=== PATIENT | male | born 1985 | race Asian ===

== ENCOUNTER 2018-10-13 10:20 | Emergency (ER) | payer MEDICAID, OTHER ==
[~2018-10-13] VITALS: Ht 177.8 cm; Wt 81.6 kg
[2018-10-13 10:25] VITALS: BP 123/87
[2018-10-13] MEDS ORDERED: cefTRIAXone SOD 1,000 MG VL IM ONE (11:45)
[2018-10-13] MEDS ORDERED: LIDOCAINE 1% HCL (LOCAL ANESTH.) INJ 20ML MDV IJ ONE (12:00)
== END 2018-10-13 12:53 | disposition home or self-care (01) ==
LOC: EDBD 10:25 → ER 10:25
DX: K04.7 Periapical abscess without sinus (principal); H66.91 Otitis media, unspecified, right ear
CPT/HCPCS: 96372; 99283; J0696; J2001

== ENCOUNTER 2019-06-15 19:56 | Emergency (ER) | payer MEDICAID ==
[~2019-06-15] VITALS: Ht 177.8 cm; Wt 81.6 kg
[2019-06-15 21:01] VITALS: BP 137/89
== END 2019-06-15 21:28 | disposition home or self-care (01) ==
LOC: ER 19:56
DX: L73.9 Follicular disorder, unspecified (principal)

== ENCOUNTER 2020-08-13 22:19 | Emergency (ER) | payer MEDICAID ==
[~2020-08-13] VITALS: Ht 175.3 cm; Wt 74.8 kg
[2020-08-13 22:49] LABS: Basophils # (auto) 0.1 10 ^3/uL (0-0.2); Basophils % (auto) 0.8 % (0.0-2.0); Eosinophils # (auto) 0.2 10 ^3/uL (0-0.8); Eosinophils % (auto) 3.2 % (0.0-7.0); Hematocrit 42.2 % (41.0-53.0); Hemoglobin 14.6 g/dL (13.5-17.5); Lymphocytes # (auto) 1.7 10 ^3/uL (0.4-5.4); Lymphocytes % (auto) 24.4 % (10.0-50.0); Mean Corpuscular Hemoglobin 31.8 pg (28.0-32.0); Mean Corpuscular Hgb Conc. 34.6 g/dL (32.0-36.0); Mean Corpuscular Volume 91.9 fL (80.0-100.0); Monocytes # (auto) 0.6 10 ^3/uL (0-1.3); Monocytes % (auto) 7.7 % (0.0-12.0); Neutrophils # (auto) 4.6 10 ^3/uL (1.6-8.6); Neutrophils % (auto) 63.9 % (37.0-80.0); Platelet Count (auto) 215 10^3/uL (140-450); Red Blood Cells 4.59 10^6/uL (4.5-5.90); Red Cell Distribution Width 12.9 % (11.8-14.3); White Blood Cell 7.1 10^3/uL (4.4-10.8)
[2020-08-13 23:06] LABS: Albumin 4.1 g/dL (3.4-5.0); BUN/Creatinine Ratio 15.6; Calcium 9.3 mg/dL (8.5-10.1); Potassium 3.8 mmol/L (3.5-5.1)
[2020-08-13 23:08] LABS: Salicylate < 1.7 mg/dL (2.8-20.0)
[2020-08-13 23:10] LABS: Bilirubin, Total 0.6 mg/dL (0.2-1.0); Total Protein 8.1 g/dL (6.4-8.2)
[2020-08-13 23:13] LABS: Acetaminophen < 2.0 ug/mL (10-30)
[2020-08-14 03:02] LABS: Alcohol, Urine < 3.0 mg/dL (0-10); Amphetamine Screen, Urine NEGATIVE (NEGATIVE); Barbiturate Scree,Urine NEGATIVE (NEGATIVE); Benzodiazephine Screen, Urine NEGATIVE (NEGATIVE); Cannabinoid Screen, Urine NEGATIVE (NEGATIVE); Cocaine Screen, Urine NEGATIVE (NEGATIVE); Opiate Scree,Urine NEGATIVE (NEGATIVE); Phencyclidine Screen, Urine NEGATIVE (NEGATIVE)
[2020-08-14 03:10] LABS: Urine Bacteria NONE SEEN /hpf (None Seen); Urine Blood Negative /uL (Negative); Urine Mucus FEW (None Seen); Urine Specific Gravity 1.024 (1.001-1.035); Urine WBC 2 /hpf (0 - 3)
[2020-08-14 07:26] VITALS: BP 120/94
== END 2020-08-14 14:33 | disposition left against medical advice (07) ==
LOC: ER 22:22
DX: F22 Delusional disorders (principal); F20.9 Schizophrenia, unspecified; R45.851 Suicidal ideations; F41.9 Anxiety disorder, unspecified; Z20.822 Contact with and (suspected) exposure to COVID-19
CPT/HCPCS: 36415; 80053; 80307; 80329; 81001; 85025; 87426

== ENCOUNTER 2021-02-02 18:57 | Emergency (ER) | payer MEDICAID ==
[~2021-02-02] VITALS: Ht 177.8 cm; Wt 81.6 kg
[2021-02-02 22:38] VITALS: BP 118/78
[2021-02-02] MEDS ORDERED: cefTRIAXone SOD 1,000 MG VL IM ONE (22:45)
== END 2021-02-03 00:20 | disposition home or self-care (01) ==
LOC: ER 19:02
DX: S02.5XXA Fracture of tooth (traumatic), initial encounter for closed fracture (principal); K04.7 Periapical abscess without sinus; X58.XXXA Exposure to other specified factors, initial encounter; Y93.89 Activity, other specified; Y92.89 Other specified places as the place of occurrence of the external cause; Y99.8 Other external cause status
CPT/HCPCS: 96372; 99283; J0696

== ENCOUNTER 2021-12-08 11:58 | Emergency (ER) | payer MEDICAID ==
[~2021-12-08] VITALS: Ht 177.8 cm; Wt 180.0 kg
[2021-12-08 14:00] VITALS: BP 113/79
[2021-12-08] MEDS ORDERED: IBUP800T27 PO (16:46)
[2021-12-08] MEDS ORDERED: CYCL-837 PO (16:46)
== END 2021-12-08 17:12 | disposition home or self-care (01) ==
LOC: ER 11:58
DX: S16.1XXA Strain of muscle, fascia and tendon at neck level, initial encounter (principal); R51.9 Headache, unspecified; Z79.1 Long term (current) use of non-steroidal anti-inflammatories (NSAID); Z79.899 Other long term (current) drug therapy; V43.52XA Car driver injured in collision with other type car in traffic accident, initial encounter; Y93.89 Activity, other specified; Y92.410 Unspecified street and highway as the place of occurrence of the external cause; Y99.8 Other external cause status
CPT/HCPCS: 70450; 72125